=== PATIENT | female | born 1955 | race Caucasian/White ===

== ENCOUNTER → 2016-10-26 | Outpatient (CLI) | payer OTHER | LOC: FIMAGING 14:35 | DX: Z12.31 Encounter for screening mammogram for malignant neoplasm of breast (principal) | CPT/HCPCS: G0202 ==

== ENCOUNTER → 2016-10-27 | Outpatient (CLI) | payer OTHER | LOC: FIMAGING 14:17 | PROVIDERS: ATTEND Physical Medicine & Rehabilitation Neuromuscular Medicine | DX: M51.84 Other intervertebral disc disorders, thoracic region (principal); M50.822 Other cervical disc disorders at C5-C6 level; M48.02 Spinal stenosis, cervical region ==

== ENCOUNTER → 2017-01-01 | Outpatient (CLI) | payer OTHER | LOC: FIMAGING 16:07 | PROVIDERS: ATTEND Neurological Surgery | DX: R94.02 Abnormal brain scan (principal); M48.02 Spinal stenosis, cervical region; M47.892 Other spondylosis, cervical region ==